=== PATIENT | male | born 1945 | race Caucasian/White ===

== ENCOUNTER 2017-09-24 22:37 | Emergency (ER) | payer MEDICARE, OTHER ==
[~2017-09-24] VITALS: Ht 177.8 cm; Wt 104.3 kg
[~2017-09-24 22:37] MED LIST: AMLODIPINE BESYL5 MG PO; ASPIR-LOW81 MG PO; CARVEDILOL25 MG PO; CLONIDINE HCL0.1 MG PO; FLAX OIL1000 MG PO; HYDROCODON-ACE1 EA10 PO; LOSARTAN POTAS100 MG PO; METFORMIN HCL500 M1 PO; PRAVASTATIN SOD80 MG PO; SUDOGEST60 MG PO; TESTOSTERO200 MG/1 M IM; VITAMIN D31000 UNI1 PO
[2017-09-24] MEDS ORDERED: ALLOPURINOL300 MG PO (22:52)
[2017-09-24] MEDS ORDERED: TORSEMIDE10 MG PO (22:54)
[2017-09-24] MEDS ORDERED: PRAMIPEXOLE D0.25 MG PO (22:54)
[2017-09-25] MEDS ORDERED: VALACYCLOVIR1000 MG PO (00:42)
[2017-09-25] MEDS ORDERED: PREDNISONE20 MG PO (00:42)
--- NOTE | 2017-09-25 13:38 | EKG ---
[facility] [address] [facility] [place] [address] Signed Normal sinus rhythm Normal ECG When compared with ECG of 27-AUG-2016 20:48, No significant change was found Confirmed by FRANKIE TAVERA MD ([id number]) on 09/25/2017 1:38:07 PM Electronically Signed By: FRANKIE TAVERA MD 09/25/17 1338 PATIENT NAME: ONOFREHAKEEMKETTY HERRERA Electrocardiogram DATE OF : 47 PHYSICIAN: FRANKIE TAVERA MD REPORT #: [id number] REPORT IS CONFIDENTIAL AND NOT TO BE RELEASED WITHOUT AUTHORIZATION
== END 2017-09-25 00:55 | disposition home or self-care (01) ==
LOC: ED 22:37
DX: G51.0 Bell's palsy (principal); E11.9 Type 2 diabetes mellitus without complications; I10 Essential (primary) hypertension; Z88.8 Allergy status to other drugs, medicaments and biological substances; Z79.899 Other long term (current) drug therapy; Z79.84 Long term (current) use of oral hypoglycemic drugs; Z79.82 Long term (current) use of aspirin
CPT/HCPCS: 70450; 71045; 80053; 84484; 85025; 85610; 85730; 93005; 93010; 99284; J7512

== ENCOUNTER 2018-03-06 08:33 | Day surgery (SDC) | payer MEDICARE, OTHER ==
[~2018-03-06] VITALS: Ht 177.8 cm; Wt 109.3 kg
[~2018-03-06 08:33] MED LIST changes: +ALLOPURINOL300 MG PO; +CARDURA1 MG PO; +CIALIS20 MG PO; +FLONASE ALLERG9.9 ML NAS; +POTASSIUM CHLO20 ME2 PO; +PRAMIPEXOLE D0.25 MG PO; +PREDNISONE20 MG PO; +TORSEMIDE10 MG PO; +VALACYCLOVIR1000 MG PO
--- NOTE | 2018-03-06 10:26 | NUR ---
03/06/18 1026 Angélica Dangelo PT VITALS STABLE, DENIES PAIN, WAKES EASILY
--- NOTE | 2018-03-07 07:52 | OR ---
[facility] [address] [place], [place] [address] Signed DATE OF OPERATION: 03/06/2018 SURGEON: Matthew Field MD PREOPERATIVE DIAGNOSES: 1. Screening. 2. External hemorrhoids. POSTOPERATIVE DIAGNOSES: 1. Polyps opposite ileocecal valve, distal right colon, proximal transverse colon, distal transverse colon, 125 cm, 105 cm, 52 cm, and 61 cm. 2. Single diverticulum, left colon. 3. Moderate external hemorrhoids, left greater than right. PROCEDURE: Colonoscopy with snare polypectomy, hot biopsy, and injection of tattoo at 52 and 61 cm. ESTIMATED BLOOD LOSS: Minimal. INDICATIONS: Sven is a 72-year-old gentleman, asked to see me for followup screening colonoscopy. He talked about a negative colonoscopy back in 2006. He said he has had chronic hemorrhoids for years and now that he is semi retired, he is thinking about having the hemorrhoids removed surgically. In addition, he gave himself an umbilical hernia 14 years ago, when he was building a [employer] feature in his backyard. He said that has been bothersome. He is going to have that and he would like to have me repair that at some point. Otherwise, he really has no lower GI complaints and there is no family history of colon cancer or polyps. I gave vSen a booklet in the office on colonoscopy. We looked at that together along with the risks including, but not limited to gas bloating, crampy abdominal pain, bleeding, perforation, requiring surgery, and missed diagnosis. He had expressed understanding and wished to proceed. PROCEDURE NOTE: Sven was taken into our endoscopy suite and placed in the left lateral decubitus position. He required 5 mg of Versed and 100 mcg of fentanyl to cover the case. We did give him a preoperative antibiotic because of his knee replacements. A digital rectal exam was performed and sure enough he does have moderate circumferential external hemorrhoids with the left being slightly worse than the right. The adult colonoscope was introduced and advanced all around into the cecum under direct visualization of Electronically Signed By: MATTHEW FIELD MD 03/07/18 0752 PATIENT NAME: SVEN ADHIKARI OPERATIVE REPORT DATE OF : 47 REPORT #: [id number] PHYSICIAN: MATTHEW FIELD MD PCP: JAYDE TURNER MD REPORT IS CONFIDENTIAL AND NOT TO BE RELEASED WITHOUT AUTHORIZATION [facility] [address] [place], [place] [address] Signed camera without difficulty. His prep was quite good. The scope was slowly withdrawn. The above-mentioned polyps were removed with the help of the hot biopsy forceps and/or the snare. He had two moderately large pedunculated polyps at 52 and 61 cm. In that area, there were four total polyps. However, we injected a tattoo at 52 cm and one at 61 cm in order to zhanna that area, in case if the pathology came back unfavorable. Also it will help us in the future to re-examine that area. I did see just a single diverticulum as I came back to the left colon. The rectum itself was unremarkable. The scope was then retroflexed and he really has very little if anything in the way of internal hemorrhoid columns. After this, the gas was suctioned out and colonoscope removed. Sven tolerated the procedure quite well. RECOMMENDATIONS: I will see Sven back in my office in 7 to 14 days to review his results. He might consider a short interval colonoscopy just to make sure all the polyps have been removed, stayed anywhere from a few months up to 18 months. Certainly, not beyond about 2-1/2 to 3 years. In addition, we can discuss the external hemorrhoids and his umbilical hernia. Matthew Field MD ALB/MODL /[id number] cc: MD Matthew Gale MD Copies: JAYDE TURNER MD, ANDREW L MD ~ Electronically Signed By: MATTHEW FIELD MD 03/07/18 0752 PATIENT NAME: SVEN ADHIKARI OPERATIVE REPORT DATE OF : 47 REPORT #: [id number] PHYSICIAN: MATTHEW FIELD MD PCP: JAYDE TURNER MD REPORT IS CONFIDENTIAL AND NOT TO BE RELEASED WITHOUT AUTHORIZATION
== END 2018-03-06 10:49 | disposition home or self-care (01) ==
LOC: OPS 08:33 → DS 08:33 → OPS 09:45 → DS 09:45 → OPS 10:49
PROVIDERS: Colon & Rectal Surgery
PROC: 0DBE8ZZ Excision of Large Intestine, Via Natural or Artificial Opening Endoscopic (ICD-10-PCS; 2018-03-06)
PROC: 0DBL8ZZ Excision of Transverse Colon, Via Natural or Artificial Opening Endoscopic (ICD-10-PCS; 2018-03-06)
PROC: 3E0H8GC Introduction of Other Therapeutic Substance into Lower GI, Via Natural or Artificial Opening Endoscopic (ICD-10-PCS; 2018-03-06)
PROC: 0DBC8ZZ Excision of Ileocecal Valve, Via Natural or Artificial Opening Endoscopic (ICD-10-PCS; principal; 2018-03-06 09:45)
DX: Z12.11 Encounter for screening for malignant neoplasm of colon (principal); D12.0 Benign neoplasm of cecum; D12.3 Benign neoplasm of transverse colon; D12.6 Benign neoplasm of colon, unspecified; K57.30 Diverticulosis of large intestine without perforation or abscess without bleeding; K63.5 Polyp of colon; K64.4 Residual hemorrhoidal skin tags; E66.9 Obesity, unspecified; I10 Essential (primary) hypertension; E78.5 Hyperlipidemia, unspecified; E11.9 Type 2 diabetes mellitus without complications; M19.90 Unspecified osteoarthritis, unspecified site; G25.81 Restless legs syndrome; Z88.4 Allergy status to anesthetic agent; Z88.8 Allergy status to other drugs, medicaments and biological substances
CPT/HCPCS: 99153; G0500; J2250; J3010; J7120

== ENCOUNTER 2021-09-09 06:40 | Day surgery (SDC) | payer MEDICARE, OTHER ==
[~2021-09-09] VITALS: Ht 177.8 cm; Wt 107.0 kg
[2021-09-09] MEDS ORDERED: ALDACTONE25 MG PO (06:59)
--- NOTE | 2021-09-09 08:19 | NUR ---
09/09/21 0819 Cheyanne Crenshaw 0809-PATIENT ARRIVED TO PACU ON 4L NC PLACED ON 2L NC RR EVEN. PATIENT AROUSES TO VERBAL STIMULI OPENING EYES. PATIENT LAYING LEFT LATERAL PASSING GAS. IVF INFUSING. 0811-PATIENT AWAKE REPOSITIONED SELF TO BACK 2L NC RR EVEN DOZES BACK TO SLEEP.
--- NOTE | 2021-09-09 10:59 | NUR ---
PT GONE TO SCOPE RM-CONNECTED WITH PT'S . SEEMS TO HAVE NO CONCERNS. SHE WAS THANKFUL THAT PT WAS STAYING CURRENT ON HIS SCOPES. GAVE ENCOURAGEMENT, WILL FOLLOW NEEDED
--- NOTE | 2021-09-10 05:40 | OR ---
[facility] [address] [place], [place] [address] Signed DATE OF OPERATION: 09/09/2021 SURGEON: Matthew Field MD PREOPERATIVE DIAGNOSES: 1. Personal history of colonic polyps in 2018. 2. Tattoos at 52 and 61 cm. 3. External hemorrhoids, left greater than right. POSTOPERATIVE DIAGNOSES: 1. Minimal sigmoid diverticulosis. 2. Moderate external hemorrhoids, left greater than right. 3. 3 mm polyp at 6 cm. 4. 7 mm polyp at 50 cm (snare). 5. 4 mm polyp at 75 cm. 6. 3 mm polyp at proximal right colon. 7. 3 mm polyp at 20 cm (rectum). PROCEDURE: Colonoscopy with snare polypectomy and hot biopsy. ESTIMATED BLOOD LOSS: None. INDICATIONS: Sven is a 75-year-old obese diabetic gentleman, who was asked to see me for followup colonoscopy. His initial screening colonoscopy in [address] Rosario. I performed his colonoscopy in 2018 and he had tubulovillous adenomatous polyps as well as tubular adenomatous polyps removed. There were polyps in total. We left a tattoo at 52 and 61 cm. We know he has external hemorrhoids moderate in size with the left being larger than the right. We had seen just a single diverticulum in his left colon. He had done well at that time with his Versed and fentanyl. He now returns for somewhat shortened followup due to the number of polyps that he has had. I gave him a booklet in the office on colonoscopy. We had reviewed the nature of the test. He understands there is risk including, but not limited to gas bloating, crampy abdominal pain, bleeding, perforation requiring surgery, and missed diagnosis. We also discussed the need for the IV conscious sedation. He told me his will be able to take him home. He had expressed understanding and wished to proceed. PROCEDURE NOTE: Electronically Signed By: MATTHEW FIELD MD 09/10/21 0540 PATIENT NAME: SVEN ADHIKARI OPERATIVE REPORT DATE OF : 47 REPORT #: [id number] PHYSICIAN: MATTHEW FIELD MD PCP: JAYDE TURNER MD REPORT IS CONFIDENTIAL AND NOT TO BE RELEASED WITHOUT AUTHORIZATION [facility] [address] [place], [place] [address] Signed Sven was taken into our endoscopy suite and placed in the left lateral decubitus position. He was given a total of 4 mg of Versed and 100 mcg of fentanyl to cover the case. A digital rectal exam was performed and again he has the moderate circumferential external hemorrhoids. The left is slightly larger than the right. He had good sphincter tone. 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 The adult colonoscope was then introduced and advanced all around into the cecum under direct visualization of the camera without difficulty. His prep was quite excellent. We could easily see the appendiceal orifice and the ileocecal valve. We had taken pictures throughout for photodocumentation. The above-mentioned polyps were easily removed with the help of hot biopsy forceps. The polyp at 50 cm was removed with the help of the snare and hot biopsy forceps. That polyp actually is in between the two tattoos. On this occasion, we did see a few diverticula in the sigmoid colon. They were small in size, few in number, and scattered about. Once in the rectum, the scope had been retroflexed and there was no additional pathology noted above the anal canal. After this, the gas was suctioned out and the colonoscope removed. Sven tolerated his procedure quite well. RECOMMENDATIONS: I will see Sevn back in my office in 7 to 14 days. He will need to be on the 5-year rotation. Matthew Field MD ALB/MODL /[id number] cc: MD Matthew Gale MD Copies: JAYDE TRUNER MD, ANDREW L MD ~ Electronically Signed By: MATTHEW FIELD MD 09/10/21 0540 PATIENT NAME: SVEN ADHIKARI OPERATIVE REPORT DATE OF : 47 REPORT #: [id number] PHYSICIAN: MATTHEW FIELD MD PCP: JAYDE TURNER MD REPORT IS CONFIDENTIAL AND NOT TO BE RELEASED WITHOUT AUTHORIZATION
--- NOTE | 2021-09-10 14:31 | PATH ---
[facility] [address] [place], [place] [address] Signed SPECIMEN(S): A COLON POLYP AT 6 CM SPECIMEN(S): B COLON POLYP AT 50 CM SPECIMEN(S): C COLON POLYP AT 75 CM SPECIMEN(S): D PROXIMAL ASCENDING/RIGHT COLON POLYP SPECIMEN(S): E COLON POLYP AT 20 CM SPECIMEN SOURCE: A. COLON POLYP AT 6 CM B. COLON POLYP AT 50 CM C. COLON POLYP AT 75 CM D. PROXIMAL ASCENDING/RIGHT COLON POLYP E. COLON POLYP AT 20 CM CLINICAL HISTORY: Colonoscopy. History of polyps, diverticulosis, external hemorrhoids. Postop: History of polyps, diverticulosis, external hemorrhoids. FINAL PATHOLOGIC DIAGNOSIS: A. Colon, polyp at 6 cm, polypectomy: - Colonic mucosa with hyperplastic mucosal changes. - Negative for dysplasia or malignancy. B. Colon, polyp at 50 cm, polypectomy: - Tubular adenoma. - Negative for high-grade dysplasia or malignancy. C. Colon, polyp at 75 cm, polypectomy: - Tubular adenoma. - Negative for high-grade dysplasia or malignancy. D. Colon, proximal ascending/right, polyp, polypectomy: - Tubular adenoma. - Negative for high-grade dysplasia or malignancy. E. Colon, polyp at 20 cm, polypectomy: - Hyperplastic polyp. - Negative for dysplasia or malignancy. NAL:cml:C2NR MICROSCOPIC EXAMINATION: Histologic sections of all submitted blocks are examined by light microscopy. These findings, together with the gross examination, support the pathologic diagnosis. GROSS DESCRIPTION: PATIENT NAME: HAKEEM ADHIKARI PATHOLOGY DATE OF : 47 REPORT #: [id number] PHYSICIAN: KARISSA MAHAJAN PCP: JAYDE TURNER MD REPORT IS CONFIDENTIAL AND NOT TO BE RELEASED WITHOUT AUTHORIZATION [facility] [address] [place], [place] [address] Signed Five specimens are received in five containers, labeled "MA." A. The specimen, labeled "MA, colon polyp at 6 cm," is received in formalin and consists of two pierre soft tissue fragments that measure 0.2 cm in greatest dimension. The specimen is entirely submitted in cassette (A1). B. The specimen, labeled "MA, colon polyp at 50 cm," is received in formalin and consists of three pierre soft tissue fragments that measure 0.2-0.7 cm in greatest dimension. The specimen is entirely submitted in cassette (B1). C. The specimen, labeled "MA, colon polyp at 75 cm," is received in formalin and consists of one pierre soft tissue fragment that measures 0.2 cm in greatest dimension. The specimen is entirely submitted in cassette (C1). D. The specimen, labeled "MA, proximal ascending colon polyp," is received in formalin and consists of one pierre soft tissue fragment that measures 0.1 cm in greatest dimension. The specimen is entirely submitted in cassette (D1). E. The specimen, labeled "MA, colon polyp at 20 cm," is received in formalin and consists of one pierre soft tissue fragment that measures 0.1 cm in greatest dimension. The specimen is entirely submitted in cassette (E1). JS (under the direct supervision of a pathologist) The Gross Description was prepared using a voice recognition system. The report was reviewed for accuracy; however, sound-alike word errors, addition and/or deletions may occur. If there is any question about this report, please contact Client Services. PERFORMING LABORATORY: The technical component was performed by [employer] [facility], [address] [place] [id number] ([employer] Tender: Mami Amin MD; CLIA# [id number]). Professional interpretation was performed by [facility], [address] [facility] [place] [address], [place] [address] (CLIA# [id number]). Diagnostician: Vivi Santana MD Pathologist Electronically Signed 09/10/2021 Copies: PATIENT NAME: HAKEEM ADHIKARI PATHOLOGY DATE OF : 47 REPORT #: [id number] PHYSICIAN: KARISSA PATHOLOGY PCP: JAYDE TURNER MD REPORT IS CONFIDENTIAL AND NOT TO BE RELEASED WITHOUT AUTHORIZATION [facility] [address] [facility] [place], [place] [address] Signed ~ PATIENT NAME: HAKEEM ADHIKARI PATHOLOGY DATE OF : 47 REPORT #: [id number] PHYSICIAN: KARISSA MAHAJAN PCP: JAYDE TURNER MD REPORT IS CONFIDENTIAL AND NOT TO BE RELEASED WITHOUT AUTHORIZATION
== END 2021-09-09 08:55 | disposition home or self-care (01) ==
LOC: OPS 06:40 → DS 06:40 → OPS 08:15
PROVIDERS: ATTEND Colon & Rectal Surgery
PROC: 0DBP8ZX Excision of Rectum, Via Natural or Artificial Opening Endoscopic, Diagnostic (ICD-10-PCS; 2021-09-09)
PROC: 0DBE8ZX Excision of Large Intestine, Via Natural or Artificial Opening Endoscopic, Diagnostic (ICD-10-PCS; 2021-09-09)
PROC: 0DBF8ZX Excision of Right Large Intestine, Via Natural or Artificial Opening Endoscopic, Diagnostic (ICD-10-PCS; principal; 2021-09-09 07:25)
DX: D12.2 Benign neoplasm of ascending colon (principal); K62.1 Rectal polyp; K57.30 Diverticulosis of large intestine without perforation or abscess without bleeding; K64.4 Residual hemorrhoidal skin tags; I10 Essential (primary) hypertension; E11.9 Type 2 diabetes mellitus without complications; E66.01 Morbid (severe) obesity due to excess calories; Z68.35 Body mass index [BMI] 35.0-35.9, adult; Z88.8 Allergy status to other drugs, medicaments and biological substances; Z88.4 Allergy status to anesthetic agent
CPT/HCPCS: 99153; G0500; J0690; J2250; J3010; J7121

== ENCOUNTER 2021-11-05 06:00 | Day surgery (SDC) | payer MEDICARE, OTHER ==
[~2021-11-05] VITALS: Ht 177.8 cm; Wt 107.7 kg
[~2021-11-05 06:00] MED LIST changes: +ALDACTONE25 MG PO
--- NOTE | 2021-11-05 08:06 | NUR ---
PT ALERT, ORIENTED AND SUPPORTED BY HIS . PT HAS GOOD ATTITUDE, ALL QUESTIONS ASKED ANSWERED. [facility] PRINGLE IN TO FINISH PREP, GAVE BLESSING AND WILL FOLLOW NEEDED
--- NOTE | 2021-11-05 08:31 | NUR ---
11/05/21 0831 Nino Grijalva A REPORT RECIEVED FROM GLOVE TURNER. CBG 276 WHICH IS CONSISTANT WITH PRE OP LEVELS. NO ORDERS REGARDING BLOOD SUGAR AT THIS POINT. PT REMAINS NONRESPONSIVE TO TAP AND VOICE AT 0831
--- NOTE | 2021-11-05 09:05 | NUR ---
PATIENT BACK TO ROOM FROM PACU ON . RECEIVED REPORT FROM LIBERTAD SIMON. PATIENT IS AWAKE. RESP EVEN AND UNLABORED. PATIENT DENIES PAIN AND NAUSEA. DRESSING IS CLEAN DRY AND INTACT. PATEINT HAS ICE PACKET IN PLACE AND HAS PILLOW TO USE SPLINT. AT BEDSIDE. PATIENT TAKING SIPS OF WATER AND EATING JELLO. CALL LIGHT WITHIN REACH.
--- NOTE | 2021-11-05 10:10 | NUR ---
PATIENT ASSESSMENT COMPLETE. PATIENT IS ALERT AND ORIENTED. PATIENT COMPLAINS OF 3/10 PAIN IN ABDOMEN ACHING. ICE APPLIED DENIES NEEDING PAIN MEDICATION AT THIS TIME. PATIENT BREATHING IS EQUAL AND UNLABORED ON ROOM AIR. VITAL SIGNS DOCUMENTED. PATIENT WAS ABLE TO AMBULATE TO BATHROOM AND TOLERATED WELL. PATIENT ABLE TO VOID 100 MLS. AMBULATED BACK TO THE ROOM. MET DISCHARGE CRITERIA. EDUCATION GIVEN AND UNDERSTOOD BY PATIENT AND . PERSCRIPTION GIVEN TO . NO QUESTIONS AT THIS TIME. IV PULLED. PATIENT WAS WHEELED OUT OF FACILITY.
--- NOTE | 2021-11-05 11:14 | OR ---
[facility] [address] [place], [place] [address] Signed DATE OF OPERATION: 11/05/2021 SURGEON: Matthew Field MD PREOPERATIVE DIAGNOSIS: Reducible umbilical hernia (12 mm). POSTOPERATIVE DIAGNOSIS: Reducible umbilical hernia (12 mm). PROCEDURE: Primary umbilical herniorrhaphy with intra-abdominal Ventralex mesh (6.4 cm). ESTIMATED BLOOD LOSS: None. INDICATIONS: Sven is a -jtkb-suu obese diabetic gentleman, asked to see me for repair of his umbilical hernia. He has had it for quite a few years. 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 He said it has gotten worse overtime. He has been trying to lose weight with the help of his . He said the hernia is bulging out and really bothering him. 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 He said the skin over the top is starting to look a little thin. He was therefore asked to see me by his primary care provider. In the office, it is reducible, but the skin is getting a little thin and stretched over the top. I gave him our brochure on hernias. We had reviewed the location and function of his umbilical hernia. We had reviewed primary suture repair versus a mesh repair. Given his rather protuberant abdomen, a simple suture repair would carry a higher risk of recurrent hernia. He understands there is risk including, but not limited to bleeding, infection, scarring, change in contour of the skin, damage to bowel, infection of mesh requiring removal, recurrent hernias and chronic pain. We also reviewed the expected intraop and postop course. He had expressed understanding and wished to proceed. DESCRIPTION OF PROCEDURE: I met with Sven this morning and his in our preop area. We marked his umbilicus appropriately. With his diabetes, his renal function is down a little and therefore we did not use any paralytic agents today. We had taken him into the operating room and placed him under general LMA anesthesia. He was given preoperative antibiotics along with subcutaneous heparin. SCDs were utilized. He has been prepped and draped in the usual sterile fashion. We injected local anesthetic in and around his umbilicus for a Electronically Signed By: MATTHEW FIELD MD 11/05/21 1114 PATIENT NAME: SVEN ADHIKARI OPERATIVE REPORT DATE OF : 47 REPORT #: [id number] PHYSICIAN: MATTHEW FIELD MD PCP: JEM TURNER MD REPORT IS CONFIDENTIAL AND NOT TO BE RELEASED WITHOUT AUTHORIZATION [facility] [address] [place], [place] [address] Signed field block. We used a standard transverse infraumbilical incision and elevated the umbilical skin with the help of cautery. The omentum was reduced and we can see his umbilical fascial defect was around 12 mm or so in diameter. We therefore chose our 6.4 cm round Ventralex mesh. This was placed inside the abdomen, brought up flushed against the posterior abdominal wall. We closed the fascial defect in a running fashion with #1 Prolene suture transversely with several passes of the suture going through mesh to help hold it in place. The tab was cut flushed with the abdominal wall. The wound was irrigated and suctioned out until clear. We brought the umbilical skin down to the midline fascia with an interrupted 2-0 simple PDS suture. The dermis was reapproximated with interrupted 3-0 subcuticular Monocryl sutures. The skin edges were reapproximated with a running 5-0 fast absorbing plain gut suture. Dry gauze and tape were then applied. Sven was awakened from his anesthesia, extubated in the OR, and taken to recovery room in stable condition. Matthew Field MD ALB/MODL /[id number] cc: MD Jem Cassidy MD Copies: MATTHEW FIELD MD, MALCOLM MD ~ Electronically Signed By: MATTHEW FIELD MD 11/05/21 1114 PATIENT NAME: SVEN ADHIKARI [facility] OPERATIVE REPORT DATE OF : 47 REPORT #: [id number] PHYSICIAN: MATTHEW FIELD MD PCP: JEM TURNER MD REPORT IS CONFIDENTIAL AND NOT TO BE RELEASED WITHOUT AUTHORIZATION
== END 2021-11-05 10:10 | disposition home or self-care (01) ==
LOC: DS 06:00
PROVIDERS: ATTEND Colon & Rectal Surgery
PROC: 0WUF0JZ Supplement Abdominal Wall with Synthetic Substitute, Open Approach (ICD-10-PCS; principal; 2021-11-05 06:45)
DX: K42.9 Umbilical hernia without obstruction or gangrene (principal); I10 Essential (primary) hypertension; E11.9 Type 2 diabetes mellitus without complications; E66.01 Morbid (severe) obesity due to excess calories; Z88.8 Allergy status to other drugs, medicaments and biological substances; Z88.4 Allergy status to anesthetic agent; Z68.35 Body mass index [BMI] 35.0-35.9, adult
CPT/HCPCS: C1781; J0690; J1100; J1644; J2001; J2405; J2704; J3010; J7121